=== PATIENT | male | born 1950 | race Caucasian/White ===

== ENCOUNTER 2021-12-11 16:24 | Inpatient (IN) ==
[2021-12-11] MEDS ORDERED: ADENOSINE 6 MG/2 ML VIAL ONE ×2 (17:11→17:28)
[2021-12-11] MEDS ORDERED: ADENOSINE 6 MG/2 ML VIAL IV STA ×2 (17:15→17:39)
[2021-12-11] MEDS ORDERED: SODIUM CHLORIDE 0.9% 2,000 ML IV STA (17:19)
[2021-12-11 17:29] LABS: Basophils # 0.1 10*3/uL (0.0-0.2); Basophils % 0.3 % (0.0-0.8); Eosinophils % 0.1 % (0.00-10.9); Hematocrit 44.1 VOL% (42.0-52.0); Hemoglobin 14.3 GM/DL (14.0-18.0); Immature Granulocytes % 2.6 %; Immature Granulocytes Absolute 0.65 #; Lymphocytes # 0.6 10*3/uL (1.4-4.0); Lymphocytes % 2.5 % (21.2-54.2); Mean Corpuscular HGB Conc 32.4 GM/DL (32-36); Mean Corpuscular Volume 89.6 FL (87-102); Mean Platelet Volume 11.4 FL (9.6-12.0); Monocytes % 3.2 % (1.7-12.7); Neutrophils % 91.3 % (38.7-73.9); Platelet Count 276 T/CUMM (130-400); Red Blood Count 4.92 MC/CUMM (3.8-5.5); Red Cell Distribution Width 14.3 % (9.3-17.3); White Blood Count 25.4 T/CUMM (4-12)
[2021-12-11 17:47] LABS: ABG Base Excess -11.1 MMOL/L (-2.5-2.5); ABG HCO3 15.8 MMOL/L (20-26); ABG Oxygen Saturation 96.4 % (95-100); ABG PCO2 26.6 MM HG (35-48); ABG PH 7.319 (7.35-7.45)
[2021-12-11 17:50] LABS: Alanine Aminotransferase 21 U/L (16-61); Albumin 1.9 G/DL (3.4-5.0); Alkaline Phosphatase 101 U/L (45-117); Aspartate Amino Transferase 15 U/L (0-37); Blood Urea Nitrogen 132 MG/DL (7-18); Calcium 8.5 MG/DL (8.5-10.1); Carbon Dioxide 15 MMOL/L (21-32); Estimated Glom Filtration Rate 16 ML/MIN; Glucose 487 MG/DL (74-106); Osmolality,Calculated 337.8 MOS/KG (273-304); Potassium 5.2 MMOL/L (3.5-5.1); Sodium 137 MMOL/L (136-145); Total Protein 6.8 G/DL (6.4-8.2)
[2021-12-11] MEDS ORDERED: SODIUM CHLORIDE 0.9% 1,000 ML IV STA (18:06)
[2021-12-11] MEDS ORDERED: CEFEPIME 1,000 MG in SODIUM CHLORIDE 0.9% 100 ML IV STA (18:11)
[2021-12-11 18:33] LABS: Band Neutrophils 2 % (0-10); Lymphocytes 2 % (20-55); Segmented Neutrophils 94 % (50-85); Total Cells Counted 100
[2021-12-11 18:34] LABS: Burr Cells 2+
[2021-12-11] MEDS ORDERED: DIGOXIN 0.5 MG/2 ML AMP IV STA (18:59)
[2021-12-11] MEDS ORDERED: INSULIN REGULAR 100 UNIT/ML IV STA (19:02)
[2021-12-11] MEDS ORDERED: DEXTROSE 10% 250 ML BAG IV PRN (19:03)
[2021-12-11] MEDS ORDERED: GLUCAGON 1 MG VIAL IM PRN (19:03)
[2021-12-11] MEDS ORDERED: ALBUTEROL 2.5 MG/3 ML NEB RESP TX PRN (19:07)
[2021-12-11] MEDS ORDERED: ONDANSETRON 4 MG/2 ML VIAL IV PRN (19:07)
[2021-12-11] MEDS ORDERED: DILTIAZEM INJ 100 MG in SODIUM CHLORIDE 0.9% 100 ML IV SCH (19:30)
[2021-12-11] MEDS: HYDROCORTISONE 100 MG VIAL IV SCH (19:33)
[2021-12-11] MEDS: LACTATED RINGERS 1,000 ML IV SCH (19:33)
[2021-12-11] MEDS ORDERED: DIGOXIN 0.5 MG/2 ML AMP IV ONE (20:00)
[2021-12-11] MEDS ORDERED: METOPROLOL TARTRATE 5 MG/5 ML VIAL IV STA (21:44)
[2021-12-12] MEDS: INSULIN LISPRO 100 UNIT/ML SUBCUT SCH ×7 (00:24→23:27)
[2021-12-12] MEDS ORDERED: METOPROLOL TARTRATE 5 MG/5 ML VIAL IV STA (03:10)
[2021-12-12] MEDS: LACTATED RINGERS 1,000 ML IV SCH ×4 (03:19→23:28)
[2021-12-12 06:02] LABS: Basophils % 0.1 % (0.0-0.8); Hematocrit 39.7 VOL% (42.0-52.0); Immature Granulocytes % 1.4 %; Immature Granulocytes Absolute 0.31 #; Lymphocytes # 0.8 10*3/uL (1.4-4.0); Lymphocytes % 3.6 % (21.2-54.2); Mean Corpuscular HGB Conc 32.7 GM/DL (32-36); Mean Corpuscular Volume 89.6 FL (87-102); Mean Platelet Volume 11.6 FL (9.6-12.0); Monocytes % 3.8 % (1.7-12.7); Neutrophils % 91.1 % (38.7-73.9); Platelet Count 259 T/CUMM (130-400); Red Blood Count 4.43 MC/CUMM (3.8-5.5); Red Cell Distribution Width 14.6 % (9.3-17.3); White Blood Count 21.5 T/CUMM (4-12)
[2021-12-12 06:07] LABS: INR 1.2; PT Patient Result 12.9 SECS (10.5-12.0)
[2021-12-12 06:23] LABS: Lymphocytes 1 % (20-55); Platelet Estimate Adequate; Segmented Neutrophils 96 % (50-85); Total Cells Counted 100
[2021-12-12 08:47] LABS: Albumin 1.8 G/DL (3.4-5.0); Bilirubin,Total 0.7 MG/DL (0.20-1.00); Calcium 8.5 MG/DL (8.5-10.1); Osmolality,Calculated 308.2 MOS/KG (273-304); Potassium 4.6 MMOL/L (3.5-5.1); Thyroid Stimulating Hormone 1.32 uIU/ml (0.358-3.74); Total Protein 6.4 G/DL (6.4-8.2)
[2021-12-12] MEDS: PANTOPRAZOLE 40 MG TABLET PO SCH (09:19)
[2021-12-12] MEDS: HYDROCORTISONE 100 MG VIAL IV SCH ×2 (09:28→22:30)
[2021-12-12 10:21] LABS: Calcium 8.5 MG/DL (8.5-10.1); Potassium 4.7 MMOL/L (3.5-5.1)
[2021-12-12 12:05] LABS: Amorphous Crystals,Urine Few /HPF (Few); Bilirubin,Urine Negative (Negative); Blood, Urine Moderate mg/dL (Negative); Glucose,Urine (UA) 150 mg/dL (Negative); Ketones,Urine Negative (Negative); Nitrite,Urine Negative (Negative); Protein,Urine >=500 MG/DL; RBC,Urine 22 /HPF (0-4); Urine Appearance CLOUDY (Clear); Urine Color Yellow (Yellow); Urine Specific Gravity 1.012 (1.001-1.035); Urine Urobilinogen < 2.0 EU/DL (<2.0)
[2021-12-12] MEDS ORDERED: METOPROLOL TARTRATE 25 MG TABLET PO ONE (12:29)
[2021-12-12] MEDS: INSULIN GLARGINE 100 UNIT/ML SUBCUT SCH (13:32)
[2021-12-12] MEDS: cefTRIAXone 1,000 MG in SODIUM CHLORIDE 0.9% 100 ML IV SCH (13:32)
[2021-12-12 13:55] LABS: Calcium 7.9 MG/DL (8.5-10.1); Osmolality,Calculated 319.4 MOS/KG (273-304); Potassium 4.8 MMOL/L (3.5-5.1)
[2021-12-12] MEDS: DILTIAZEM 60 MG TABLET PO SCH ×3 (15:00→22:25)
[2021-12-12] MEDS ORDERED: APIXABAN 5 MG TABLET PO SCH (21:00)
[2021-12-12] MEDS ORDERED: HYDROCORTISONE 100 MG VIAL ONE (22:12)
[2021-12-12] MEDS: METOPROLOL TARTRATE 25 MG TABLET PO SCH (22:25)
[2021-12-12] MEDS: ATORVASTATIN 40 MG TABLET PO SCH (22:25)
[2021-12-13] MEDS: INSULIN LISPRO 100 UNIT/ML SUBCUT SCH ×6 (03:03→20:48)
[2021-12-13 04:25] LABS: Basophils % 0.1 % (0.0-0.8); Eosinophils % 0.1 % (0.00-10.9); Hematocrit 36.8 VOL% (42.0-52.0); Immature Granulocytes % 2.2 %; Immature Granulocytes Absolute 0.29 #; Lymphocytes # 0.5 10*3/uL (1.4-4.0); Lymphocytes % 3.9 % (21.2-54.2); Mean Corpuscular HGB Conc 32.6 GM/DL (32-36); Mean Corpuscular Volume 89.8 FL (87-102); Mean Platelet Volume 11.2 FL (9.6-12.0); Monocytes % 3.5 % (1.7-12.7); Neutrophils % 90.2 % (38.7-73.9); Platelet Count 194 T/CUMM (130-400); Red Cell Distribution Width 14.7 % (9.3-17.3); White Blood Count 13.4 T/CUMM (4-12)
[2021-12-13 04:43] LABS: Albumin 1.4 G/DL (3.4-5.0); Band Neutrophils 1 % (0-10); Bilirubin,Total 0.6 MG/DL (0.20-1.00); Hypochromia 1+; Lymphocytes 5 % (20-55); Microcytosis 1+; Osmolality,Calculated 313.1 MOS/KG (273-304); Platelet Estimate Adequate; Potassium 4.7 MMOL/L (3.5-5.1); Segmented Neutrophils 93 % (50-85); Total Cells Counted 100; Total Protein 6.1 G/DL (6.4-8.2)
[2021-12-13] MEDS: LACTATED RINGERS 1,000 ML IV SCH ×2 (05:16→20:35)
[2021-12-13] MEDS: DILTIAZEM 60 MG TABLET PO SCH ×4 (09:09→20:32)
[2021-12-13] MEDS: METOPROLOL TARTRATE 25 MG TABLET PO SCH ×2 (09:09→20:33)
[2021-12-13] MEDS ORDERED: ETOMIDATE 40 MG/20 ML VIAL IV ONE (11:41)
[2021-12-13] MEDS ORDERED: SEVOFLURANE 1 UNIT/15 MINUTE INH ONE (11:41)
[2021-12-13] MEDS ORDERED: LIDOCAINE 2% 5 ML VIAL ONE (11:41)
[2021-12-13] MEDS ORDERED: PHENYLEPHRINE 1 MG/10 ML SYRINGE IV ONE (11:41)
[2021-12-13] MEDS ORDERED: MIDAZOLAM 2 MG/2 ML VIAL ONE (11:41)
[2021-12-13] MEDS ORDERED: ACETAMINOPHEN INJ 1,000 MG/100 ML VIAL IV ONE (11:41)
[2021-12-13] MEDS ORDERED: fentaNYL 250 MCG/5 ML VIAL ONE (11:41)
[2021-12-13] MEDS ORDERED: ROCURONIUM 50 MG/5 ML VIAL IV ONE (11:41)
[2021-12-13] MEDS ORDERED: propofoL 200 MG/20 ML VIAL IV ONE (11:41)
[2021-12-13] MEDS ORDERED: CALCIUM CHLORIDE 1,000 MG/10 ML VIAL IV ONE (12:48)
[2021-12-13] MEDS ORDERED: ALBUMIN 5% 25.0 GM/500 ML VIAL IV ONE (12:48)
[2021-12-13] MEDS ORDERED: BACITRACIN OINT 0.9 GM PACK TOP ONE (12:53)
[2021-12-13] MEDS: ceFAZolin 2,000 MG/50 ML DUPLEX IV ONE ×2 (12:54→15:45)
[2021-12-13] MEDS: ASPIRIN EC 81 MG TABLET PO SCH (12:55)
[2021-12-13] MEDS: PANTOPRAZOLE 40 MG TABLET PO SCH (12:55)
[2021-12-13] MEDS: INSULIN GLARGINE 100 UNIT/ML SUBCUT SCH (12:55)
[2021-12-13] MEDS: TAMSULOSIN 0.4 MG CAPSULE PO SCH (12:55)
[2021-12-13] MEDS ORDERED: MAGNESIUM HYDROXIDE SUSP 30 ML UDCUP PO PRN (14:00)
[2021-12-13] MEDS ORDERED: MORPHINE 2 MG/1 ML SYRINGE IV PRN (14:01)
[2021-12-13] MEDS ORDERED: cefTRIAXone 1,000 MG VIAL ONE (14:30)
[2021-12-13] MEDS ORDERED: DILTIAZEM 50 MG/10 ML VIAL IV ONE (14:31)
[2021-12-13] MEDS ORDERED: LACTATED RINGERS 1,000 ML IV ONE (14:37)
[2021-12-13] MEDS ORDERED: ONDANSETRON 4 MG/2 ML VIAL ONE (14:38)
[2021-12-13] MEDS ORDERED: GLYCOPYRROLATE 0.4 MG/2 ML VIAL ONE (14:57)
[2021-12-13] MEDS ORDERED: NEOSTIGMINE 10 MG/10 ML VIAL ONE (14:57)
[2021-12-13] MEDS: cefTRIAXone 1,000 MG in SODIUM CHLORIDE 0.9% 100 ML IV SCH (15:37)
[2021-12-13] MEDS: DOCUSATE SODIUM 100 MG CAPSULE PO SCH (20:32)
[2021-12-13] MEDS: APIXABAN 2.5 MG TABLET PO SCH (20:32)
[2021-12-13] MEDS: ATORVASTATIN 40 MG TABLET PO SCH (20:33)
[2021-12-13] MEDS: MORPHINE 2 MG/1 ML SYRINGE IV PRN (21:52)
[2021-12-14] MEDS: INSULIN LISPRO 100 UNIT/ML SUBCUT SCH ×6 (01:01→22:24)
[2021-12-14] MEDS: MORPHINE 2 MG/1 ML SYRINGE IV PRN ×4 (04:33→20:54)
[2021-12-14] MEDS: LACTATED RINGERS 1,000 ML IV SCH (06:22)
[2021-12-14 06:46] LABS: Basophils # 0.1 10*3/uL (0.0-0.2); Basophils % 0.4 % (0.0-0.8); Eosinophils # 0.3 10*3/uL (0.0-0.87); Eosinophils % 1.8 % (0.00-10.9); Hematocrit 38.5 VOL% (42.0-52.0); Hemoglobin 12.2 GM/DL (14.0-18.0); Immature Granulocytes % 3.9 %; Immature Granulocytes Absolute 0.53 #; Lymphocytes # 0.7 10*3/uL (1.4-4.0); Lymphocytes % 4.9 % (21.2-54.2); Mean Corpuscular HGB Conc 31.7 GM/DL (32-36); Mean Corpuscular Volume 93.7 FL (87-102); Mean Platelet Volume 12.1 FL (9.6-12.0); Monocytes % 4.8 % (1.7-12.7); Neutrophils % 84.2 % (38.7-73.9); Platelet Count 175 T/CUMM (130-400); Red Blood Count 4.11 MC/CUMM (3.8-5.5); Red Cell Distribution Width 14.9 % (9.3-17.3); White Blood Count 13.5 T/CUMM (4-12)
[2021-12-14 06:59] LABS: Calcium 8.3 MG/DL (8.5-10.1); Osmolality,Calculated 287.7 MOS/KG (273-304); Potassium 4.2 MMOL/L (3.5-5.1)
[2021-12-14 07:07] LABS: Lymphocytes 5 % (20-55); Platelet Estimate Adequate; Segmented Neutrophils 89 % (50-85); Total Cells Counted 100
[2021-12-14] MEDS: ASPIRIN EC 81 MG TABLET PO SCH (10:06)
[2021-12-14] MEDS: DOCUSATE SODIUM 100 MG CAPSULE PO SCH ×2 (10:06→20:49)
[2021-12-14] MEDS: APIXABAN 2.5 MG TABLET PO SCH ×2 (10:07→20:50)
[2021-12-14] MEDS: TAMSULOSIN 0.4 MG CAPSULE PO SCH (10:07)
[2021-12-14] MEDS: METOPROLOL TARTRATE 25 MG TABLET PO SCH ×2 (10:07→20:50)
[2021-12-14] MEDS: PANTOPRAZOLE 40 MG TABLET PO SCH (10:07)
[2021-12-14] MEDS: VERAPAMIL 80 MG TABLET PO SCH ×2 (10:16→20:51)
[2021-12-14] MEDS: INSULIN GLARGINE 100 UNIT/ML SUBCUT SCH (10:17)
[2021-12-14] MEDS: cefTRIAXone 1,000 MG in SODIUM CHLORIDE 0.9% 100 ML IV SCH (11:49)
[2021-12-14] MEDS: ATORVASTATIN 40 MG TABLET PO SCH (20:50)
[2021-12-15] MEDS: INSULIN LISPRO 100 UNIT/ML SUBCUT SCH ×6 (03:55→21:51)
[2021-12-15 05:44] LABS: Basophils # 0.1 10*3/uL (0.0-0.2); Basophils % 0.6 % (0.0-0.8); Eosinophils # 0.4 10*3/uL (0.0-0.87); Eosinophils % 4.6 % (0.00-10.9); Hematocrit 32.5 VOL% (42.0-52.0); Hemoglobin 10.3 GM/DL (14.0-18.0); Immature Granulocytes Absolute 0.75 #; Lymphocytes # 0.8 10*3/uL (1.4-4.0); Lymphocytes % 8.9 % (21.2-54.2); Mean Corpuscular HGB Conc 31.7 GM/DL (32-36); Mean Corpuscular Volume 92.9 FL (87-102); Mean Platelet Volume 11.3 FL (9.6-12.0); Monocytes % 7.7 % (1.7-12.7); Neutrophils % 70.2 % (38.7-73.9); Platelet Count 133 T/CUMM (130-400); Red Cell Distribution Width 14.6 % (9.3-17.3); White Blood Count 9.3 T/CUMM (4-12)
[2021-12-15 05:57] LABS: Calcium 7.8 MG/DL (8.5-10.1); Osmolality,Calculated 282.1 MOS/KG (273-304)
[2021-12-15 06:45] LABS: Anisocytosis 1+; Band Neutrophils 14 % (0-10); Eosinophils 3 % (0-10); Lymphocytes 8 % (20-55); Metamyelocytes 1 %; Platelet Estimate Adequate; Segmented Neutrophils 65 % (50-85); Total Cells Counted 100
[2021-12-15 06:46] LABS: Macrocytosis Slight
[2021-12-15] MEDS: MORPHINE 2 MG/1 ML SYRINGE IV PRN ×2 (09:17→17:43)
[2021-12-15] MEDS: ASPIRIN EC 81 MG TABLET PO SCH (09:18)
[2021-12-15] MEDS: TAMSULOSIN 0.4 MG CAPSULE PO SCH (09:18)
[2021-12-15] MEDS: INSULIN GLARGINE 100 UNIT/ML SUBCUT SCH (09:18)
[2021-12-15] MEDS: METOPROLOL TARTRATE 25 MG TABLET PO SCH ×2 (09:19→21:50)
[2021-12-15] MEDS: DOCUSATE SODIUM 100 MG CAPSULE PO SCH ×2 (09:19→21:50)
[2021-12-15] MEDS: PANTOPRAZOLE 40 MG TABLET PO SCH (09:19)
[2021-12-15] MEDS: APIXABAN 2.5 MG TABLET PO SCH ×2 (09:19→21:51)
[2021-12-15] MEDS: cefTRIAXone 1,000 MG in SODIUM CHLORIDE 0.9% 100 ML IV SCH (09:32)
[2021-12-15] MEDS: VERAPAMIL 80 MG TABLET PO SCH ×2 (09:32→21:51)
[2021-12-15] MEDS: ATORVASTATIN 40 MG TABLET PO SCH (21:50)
[2021-12-16] MEDS: INSULIN LISPRO 100 UNIT/ML SUBCUT SCH ×7 (01:17→23:39)
[2021-12-16 06:12] LABS: Basophils # 0.1 10*3/uL (0.0-0.2); Basophils % 0.6 % (0.0-0.8); Eosinophils # 0.5 10*3/uL (0.0-0.87); Eosinophils % 5.3 % (0.00-10.9); Hemoglobin 9.9 GM/DL (14.0-18.0); Immature Granulocytes % 7.3 %; Immature Granulocytes Absolute 0.68 #; Lymphocytes # 0.9 10*3/uL (1.4-4.0); Lymphocytes % 9.2 % (21.2-54.2); Mean Corpuscular HGB Conc 30.9 GM/DL (32-36); Mean Corpuscular Volume 94.1 FL (87-102); Mean Platelet Volume 11.9 FL (9.6-12.0); Monocytes % 7.8 % (1.7-12.7); Neutrophils % 69.8 % (38.7-73.9); Platelet Count 141 T/CUMM (130-400); Red Cell Distribution Width 14.6 % (9.3-17.3); White Blood Count 9.3 T/CUMM (4-12)
[2021-12-16 06:40] LABS: Calcium 7.3 MG/DL (8.5-10.1); Osmolality,Calculated 282.8 MOS/KG (273-304); Potassium 3.7 MMOL/L (3.5-5.1)
[2021-12-16 06:47] LABS: Band Neutrophils 2 % (0-10); Eosinophils 5 % (0-10); Hypochromia 1+; Lymphocytes 10 % (20-55); Microcytosis 1+; Myelocytes 1 %; Segmented Neutrophils 71 % (50-85); Total Cells Counted 100
[2021-12-16 06:48] LABS: Polychromasia Slight
[2021-12-16] MEDS: INSULIN GLARGINE 100 UNIT/ML SUBCUT SCH (09:33)
[2021-12-16] MEDS: DOCUSATE SODIUM 100 MG CAPSULE PO SCH ×2 (09:34→21:00)
[2021-12-16] MEDS: METOPROLOL TARTRATE 25 MG TABLET PO SCH ×2 (09:34→21:00)
[2021-12-16] MEDS: TAMSULOSIN 0.4 MG CAPSULE PO SCH (09:34)
[2021-12-16] MEDS: PANTOPRAZOLE 40 MG TABLET PO SCH (09:35)
[2021-12-16] MEDS: VERAPAMIL 80 MG TABLET PO SCH ×2 (09:35→21:01)
[2021-12-16] MEDS: APIXABAN 2.5 MG TABLET PO SCH (09:35)
[2021-12-16] MEDS: ASPIRIN EC 81 MG TABLET PO SCH (09:35)
[2021-12-16] MEDS: cefTRIAXone 1,000 MG in SODIUM CHLORIDE 0.9% 100 ML IV SCH (11:34)
[2021-12-16] MEDS: APIXABAN 5 MG TABLET PO SCH (21:00)
[2021-12-16] MEDS: ATORVASTATIN 40 MG TABLET PO SCH (21:00)
[2021-12-16] MEDS: MORPHINE 2 MG/1 ML SYRINGE IV PRN (21:02)
[2021-12-17] MEDS: INSULIN LISPRO 100 UNIT/ML SUBCUT SCH ×6 (04:22→23:48)
[2021-12-17] MEDS: MORPHINE 2 MG/1 ML SYRINGE IV PRN (09:32)
[2021-12-17] MEDS: PANTOPRAZOLE 40 MG TABLET PO SCH (09:35)
[2021-12-17] MEDS: ASPIRIN EC 81 MG TABLET PO SCH (09:35)
[2021-12-17] MEDS: TAMSULOSIN 0.4 MG CAPSULE PO SCH (09:35)
[2021-12-17] MEDS: APIXABAN 5 MG TABLET PO SCH ×2 (09:35→20:38)
[2021-12-17] MEDS: METOPROLOL TARTRATE 25 MG TABLET PO SCH ×2 (09:36→20:39)
[2021-12-17] MEDS: DOCUSATE SODIUM 100 MG CAPSULE PO SCH ×2 (09:36→20:39)
[2021-12-17] MEDS: INSULIN GLARGINE 100 UNIT/ML SUBCUT SCH (09:36)
[2021-12-17] MEDS: VERAPAMIL 80 MG TABLET PO SCH ×2 (09:37→20:39)
[2021-12-17] MEDS: cefTRIAXone 1,000 MG in SODIUM CHLORIDE 0.9% 100 ML IV SCH (09:43)
[2021-12-17] MEDS: ATORVASTATIN 40 MG TABLET PO SCH (20:38)
[2021-12-18] MEDS: INSULIN LISPRO 100 UNIT/ML SUBCUT SCH ×5 (04:32→20:40)
[2021-12-18] MEDS: METOPROLOL TARTRATE 25 MG TABLET PO SCH ×2 (08:56→20:39)
[2021-12-18] MEDS: AMPICILLIN 500 MG CAPSULE PO SCH ×4 (08:56→20:39)
[2021-12-18] MEDS: APIXABAN 5 MG TABLET PO SCH ×2 (08:56→20:39)
[2021-12-18] MEDS: TAMSULOSIN 0.4 MG CAPSULE PO SCH (08:57)
[2021-12-18] MEDS: VERAPAMIL 80 MG TABLET PO SCH ×2 (08:57→20:40)
[2021-12-18] MEDS: DOCUSATE SODIUM 100 MG CAPSULE PO SCH ×2 (08:57→20:40)
[2021-12-18] MEDS: PANTOPRAZOLE 40 MG TABLET PO SCH (08:57)
[2021-12-18] MEDS: ASPIRIN EC 81 MG TABLET PO SCH (08:58)
[2021-12-18] MEDS: INSULIN GLARGINE 100 UNIT/ML SUBCUT SCH (08:58)
[2021-12-18] MEDS: MORPHINE 2 MG/1 ML SYRINGE IV PRN (10:19)
[2021-12-18] MEDS: ATORVASTATIN 40 MG TABLET PO SCH (20:39)
[2021-12-18] MEDS ORDERED: INSULIN GLARGINE 100 UNIT/ML SUBCUT SCH (21:00)
[2021-12-19] MEDS: INSULIN LISPRO 100 UNIT/ML SUBCUT SCH ×4 (00:15→12:14)
[2021-12-19 05:53] LABS: Basophils # 0.1 10*3/uL (0.0-0.2); Basophils % 0.6 % (0.0-0.8); Eosinophils # 0.4 10*3/uL (0.0-0.87); Eosinophils % 4.7 % (0.00-10.9); Hematocrit 30.6 VOL% (42.0-52.0); Hemoglobin 9.7 GM/DL (14.0-18.0); Immature Granulocytes % 4.6 %; Immature Granulocytes Absolute 0.41 #; Lymphocytes # 0.9 10*3/uL (1.4-4.0); Lymphocytes % 9.7 % (21.2-54.2); Mean Corpuscular HGB Conc 31.7 GM/DL (32-36); Mean Corpuscular Volume 92.4 FL (87-102); Mean Platelet Volume 11.2 FL (9.6-12.0); Neutrophils % 74.4 % (38.7-73.9); Platelet Count 208 T/CUMM (130-400); Red Blood Count 3.31 MC/CUMM (3.8-5.5); Red Cell Distribution Width 14.5 % (9.3-17.3); White Blood Count 8.9 T/CUMM (4-12)
[2021-12-19 06:19] LABS: Calcium 7.4 MG/DL (8.5-10.1); Potassium 3.4 MMOL/L (3.5-5.1)
[2021-12-19] MEDS ORDERED: POTASSIUM CHLORIDE 20 MEQ TABLET PO ONE (07:38)
[2021-12-19] MEDS: TAMSULOSIN 0.4 MG CAPSULE PO SCH (08:24)
[2021-12-19] MEDS: PANTOPRAZOLE 40 MG TABLET PO SCH (08:25)
[2021-12-19] MEDS: AMPICILLIN 500 MG CAPSULE PO SCH ×2 (08:25→12:13)
[2021-12-19] MEDS: ASPIRIN EC 81 MG TABLET PO SCH (08:25)
[2021-12-19] MEDS: APIXABAN 5 MG TABLET PO SCH (08:25)
[2021-12-19] MEDS: DOCUSATE SODIUM 100 MG CAPSULE PO SCH (08:25)
[2021-12-19] MEDS: METOPROLOL TARTRATE 25 MG TABLET PO SCH (08:36)
[2021-12-19] MEDS: VERAPAMIL 80 MG TABLET PO SCH (08:59)
[2021-12-19 12:24] VITALS: BP 97/70
== END 2021-12-19 14:49 | DRG 480 ==
LOC: EDUNIT# → EDBD → N.ED 16:24 → SUATTDRO 18:23 → N.EDINP 18:23 → N.TELEN 12-13 04:38
PROVIDERS: ADMIT Internal Medicine; ATTEND Internal Medicine

== ENCOUNTER 2021-12-28 08:55 | Inpatient (IN) ==
[2021-12-28] MEDS ORDERED: DIAZEPAM 5 MG TABLET PO ONE (09:22)
[2021-12-28] MEDS: LACTATED RINGERS 1,000 ML IV SCH ×2 (09:30→13:10)
[2021-12-28] MEDS ORDERED: ROCURONIUM 50 MG/5 ML VIAL IV ONE (10:34)
[2021-12-28] MEDS ORDERED: LIDOCAINE 2% 5 ML VIAL ONE (10:34)
[2021-12-28] MEDS ORDERED: SUCCINYLCHOLINE 200 MG/10 ML VIAL ONE (10:34)
[2021-12-28] MEDS ORDERED: propofoL 200 MG/20 ML VIAL IV ONE (10:34)
[2021-12-28] MEDS ORDERED: fentaNYL 100 MCG/2 ML VIAL ONE (10:36)
[2021-12-28] MEDS ORDERED: ONDANSETRON 4 MG/2 ML VIAL ONE (10:40)
[2021-12-28] MEDS ORDERED: SEVOFLURANE 1 UNIT/15 MINUTE INH ONE ×4 (11:27→12:17)
[2021-12-28] MEDS ORDERED: PHENYLEPHRINE 1 MG/10 ML SYRINGE IV ONE ×4 (11:27→12:17)
[2021-12-28] MEDS ORDERED: ACETAMINOPHEN INJ 1,000 MG/100 ML VIAL IV ONE (12:28)
[2021-12-28] MEDS ORDERED: HYDROmorphone 2 MG/1 ML VIAL IV PRN ×2 (13:20→13:39)
[2021-12-28] MEDS ORDERED: ONDANSETRON 4 MG/2 ML VIAL IV PRN ×2 (13:20→13:39)
[2021-12-28] MEDS ORDERED: ALBUTEROL/IPRATROPIUM 3 ML NEB RESP TX PRN (13:39)
[2021-12-28] MEDS ORDERED: KETOROLAC 15 MG/1 ML VIAL IV PRN (13:39)
[2021-12-28] MEDS ORDERED: GLUCAGON 1 MG VIAL IM PRN (13:39)
[2021-12-28] MEDS ORDERED: ACETAMINOPHEN 325 MG TABLET PO PRN (13:39)
[2021-12-28] MEDS ORDERED: BISACODYL 5 MG TABLET PO PRN (13:39)
[2021-12-28] MEDS ORDERED: DEXTROSE 10% 250 ML BAG IV PRN (13:39)
[2021-12-28] MEDS ORDERED: ZALEPLON 5 MG CAPSULE PO PRN (13:45)
[2021-12-28] MEDS ORDERED: PNEUMOCOCCAL VACCINE (13 VALENT) 0.5 ML SYRINGE IM ONE (14:00)
[2021-12-28] MEDS: POLYETHYLENE GLYCOL POWDER 17 GM PACK PO SCH (16:40)
[2021-12-28] MEDS: CIPROFLOXACIN INJ 400 MG/200 ML PREMIX IV SCH (16:40)
[2021-12-28] MEDS: INSULIN LISPRO 100 UNIT/ML SUBCUT SCH ×2 (19:10→20:57)
[2021-12-28] MEDS ORDERED: VERAPAMIL 80 MG TABLET PO SCH (21:00)
[2021-12-28] MEDS ORDERED: glipiZIDE 5 MG TABLET PO SCH (21:00)
[2021-12-28] MEDS: BISACODYL 5 MG TABLET PO SCH (21:12)
[2021-12-28] MEDS: METOPROLOL TARTRATE 25 MG TABLET PO SCH (21:12)
[2021-12-28] MEDS: ATORVASTATIN 40 MG TABLET PO SCH (21:12)
[2021-12-29] MEDS: HYDROmorphone 2 MG/1 ML VIAL IV PRN ×4 (01:36→14:10)
[2021-12-29] MEDS: CIPROFLOXACIN INJ 400 MG/200 ML PREMIX IV SCH ×2 (05:35→17:00)
[2021-12-29 07:13] LABS: Basophils % 0.5 % (0.0-0.8); Eosinophils # 0.3 10*3/uL (0.0-0.87); Eosinophils % 3.8 % (0.00-10.9); Hematocrit 25.1 VOL% (42.0-52.0); Hemoglobin 7.7 GM/DL (14.0-18.0); Immature Granulocytes % 7.3 %; Immature Granulocytes Absolute 0.57 #; Lymphocytes # 0.9 10*3/uL (1.4-4.0); Lymphocytes % 11.1 % (21.2-54.2); Mean Corpuscular HGB Conc 30.7 GM/DL (32-36); Mean Corpuscular Volume 92.3 FL (87-102); Mean Platelet Volume 9.5 FL (9.6-12.0); Monocytes % 6.3 % (1.7-12.7); NRBC # 0.02 10*3/uL; Platelet Count 359 T/CUMM (130-400); Red Blood Count 2.72 MC/CUMM (3.8-5.5); Red Cell Distribution Width 15.2 % (9.3-17.3); White Blood Count 7.8 T/CUMM (4-12)
[2021-12-29 07:29] LABS: Calcium 7.4 MG/DL (8.5-10.1); Osmolality,Calculated 266.1 MOS/KG (273-304); Potassium 3.7 MMOL/L (3.5-5.1)
[2021-12-29 07:44] LABS: Band Neutrophils 1 % (0-10); Eosinophils 2 % (0-10); Hypochromia 1+; Lymphocytes 12 % (20-55); Microcytosis 1+; Myelocytes 1 %; Segmented Neutrophils 76 % (50-85); Total Cells Counted 100
[2021-12-29 07:45] LABS: Platelet Estimate Normal
[2021-12-29] MEDS ORDERED: ENOXAPARIN 40 MG/0.4 ML SYRINGE SUBCUT SCH (08:00)
[2021-12-29] MEDS: INSULIN LISPRO 100 UNIT/ML SUBCUT SCH (08:30)
[2021-12-29 08:44] LABS: % Iron Saturation 12.8 % (18-50); Ferritin 1265.9 ng/mL (26-388)
[2021-12-29 08:47] LABS: Folate 3.1 NG/ML (5.38-24.0)
[2021-12-29] MEDS: TAMSULOSIN 0.4 MG CAPSULE PO SCH (09:36)
[2021-12-29] MEDS: POLYETHYLENE GLYCOL POWDER 17 GM PACK PO SCH (09:36)
[2021-12-29] MEDS: PANTOPRAZOLE 40 MG TABLET PO SCH (09:36)
[2021-12-29] MEDS: ASPIRIN EC 81 MG TABLET PO SCH (09:36)
[2021-12-29] MEDS: METOPROLOL TARTRATE 25 MG TABLET PO SCH ×2 (09:36→20:55)
[2021-12-29] MEDS: SODIUM HYPOCHLORITE 0.25% IRRIG 473 ML BOTTLE TOP SCH (10:23)
[2021-12-29] MEDS: CYANOCOBALAMIN 1000 MCG/1 ML VIAL SUBCUT SCH (14:10)
[2021-12-29] MEDS: FOLIC ACID 1 MG TABLET PO SCH (14:10)
[2021-12-29] MEDS: FERRIC GLUCONATE COMPLEX 125 MG in SODIUM CHLORIDE 0.9% 100 ML IV SCH (14:10)
[2021-12-29] MEDS: BISACODYL 5 MG TABLET PO SCH (20:55)
[2021-12-29] MEDS: ATORVASTATIN 40 MG TABLET PO SCH (20:55)
[2021-12-30 05:59] LABS: Basophils # 0.1 10*3/uL (0.0-0.2); Basophils % 0.7 % (0.0-0.8); Eosinophils # 0.5 10*3/uL (0.0-0.87); Eosinophils % 5.2 % (0.00-10.9); Hemoglobin 7.7 GM/DL (14.0-18.0); Immature Granulocytes % 8.5 %; Immature Granulocytes Absolute 0.75 #; Lymphocytes # 1.1 10*3/uL (1.4-4.0); Lymphocytes % 12.3 % (21.2-54.2); Mean Corpuscular HGB Conc 30.8 GM/DL (32-36); Mean Corpuscular Volume 92.3 FL (87-102); Mean Platelet Volume 9.4 FL (9.6-12.0); Monocytes % 6.2 % (1.7-12.7); Neutrophils % 67.1 % (38.7-73.9); Platelet Count 381 T/CUMM (130-400); Red Blood Count 2.71 MC/CUMM (3.8-5.5); Red Cell Distribution Width 15.2 % (9.3-17.3); White Blood Count 8.9 T/CUMM (4-12)
[2021-12-30 06:06] LABS: Calcium 7.3 MG/DL (8.5-10.1); Osmolality,Calculated 270.1 MOS/KG (273-304)
[2021-12-30 06:28] LABS: Eosinophils 2 % (0-10); Hypochromia 1+; Lymphocytes 12 % (20-55); Microcytosis 1+; Platelet Estimate Adequate; Segmented Neutrophils 79 % (50-85); Total Cells Counted 100
[2021-12-30] MEDS: CIPROFLOXACIN INJ 400 MG/200 ML PREMIX IV SCH (06:30)
[2021-12-30] MEDS: METOPROLOL TARTRATE 25 MG TABLET PO SCH (08:13)
[2021-12-30] MEDS: PANTOPRAZOLE 40 MG TABLET PO SCH (08:13)
[2021-12-30] MEDS: FOLIC ACID 1 MG TABLET PO SCH (08:13)
[2021-12-30] MEDS: SODIUM HYPOCHLORITE 0.25% IRRIG 473 ML BOTTLE TOP SCH (08:13)
[2021-12-30] MEDS: POLYETHYLENE GLYCOL POWDER 17 GM PACK PO SCH (08:13)
[2021-12-30] MEDS: ASPIRIN EC 81 MG TABLET PO SCH (08:13)
[2021-12-30] MEDS: TAMSULOSIN 0.4 MG CAPSULE PO SCH (08:13)
[2021-12-30] MEDS: FERRIC GLUCONATE COMPLEX 125 MG in SODIUM CHLORIDE 0.9% 100 ML IV SCH (08:43)
[2021-12-30] MEDS: CYANOCOBALAMIN 1000 MCG/1 ML VIAL SUBCUT SCH (08:58)
[2021-12-30] MEDS: HYDROmorphone 2 MG/1 ML VIAL IV PRN (08:59)
[2021-12-30] MEDS ORDERED: LACTATED RINGERS 1,000 ML IV SCH (11:00)
[2021-12-30] MEDS ORDERED: AMPICILLIN INJ 2,000 MG in SODIUM CHLORIDE 0.9% 100 ML IV SCH (11:00)
[2021-12-30] MEDS ORDERED: ONDANSETRON 4 MG/2 ML VIAL ONE (11:15)
[2021-12-30] MEDS ORDERED: propofoL 200 MG/20 ML VIAL IV ONE (11:15)
[2021-12-30] MEDS ORDERED: MIDAZOLAM 2 MG/2 ML VIAL ONE (11:15)
[2021-12-30] MEDS ORDERED: SUCCINYLCHOLINE 200 MG/10 ML VIAL ONE (11:15)
[2021-12-30] MEDS ORDERED: LIDOCAINE 2% 5 ML VIAL ONE (11:15)
[2021-12-30] MEDS ORDERED: SEVOFLURANE 1 UNIT/15 MINUTE INH ONE (11:15)
[2021-12-30] MEDS ORDERED: ROCURONIUM 50 MG/5 ML VIAL IV ONE (11:15)
[2021-12-30] MEDS ORDERED: fentaNYL 100 MCG/2 ML VIAL ONE (11:16)
[2021-12-30] MEDS ORDERED: PHENYLEPHRINE 1 MG/10 ML SYRINGE IV ONE (11:48)
[2021-12-30] MEDS ORDERED: METOPROLOL TARTRATE 5 MG/5 ML VIAL IV ONE (12:07)
[2021-12-30] MEDS ORDERED: ONDANSETRON 4 MG/2 ML VIAL IV PRN (12:29)
[2021-12-30] MEDS ORDERED: HYDROmorphone 2 MG/1 ML VIAL IV PRN (12:29)
[2021-12-30 13:05] VITALS: BP 118/68
== END 2021-12-30 15:03 | DRG 264 ==
LOC: N.OR 08:55 → N.SDSINP 08:57 → N.3E 13:37
PROVIDERS: ADMIT Surgery; ATTEND Surgery

== ENCOUNTER 2022-05-15 20:46 | Inpatient (IN) ==
[2022-05-15] MEDS ORDERED: PIPERACILLIN/TAZOBACTAM 3,375 MG in SODIUM CHLORIDE 0.9% 100 ML IV STA (21:47)
[2022-05-15] MEDS ORDERED: SODIUM CHLORIDE 0.9% 500 ML IV STA (21:47)
[2022-05-15 22:54] LABS: Arterial Base Excess iSTAT -4 MMOL/L (-2.5-2.5); Arterial Bicarbonate iSTAT 16.8 MMOL/L (20-26); Arterial O2 Saturation iSTAT 88 % (95-100); Arterial PCO2 iSTAT 20 MM HG (35-48); Arterial PO2 iSTAT 47 MM HG (80-95); Arterial Total CO2 iSTAT 17 MMO/L (23-27); Arterial pH iSTAT 7.526 (7.35-7.45)
[2022-05-15] MEDS ORDERED: ACETAMINOPHEN 650 MG SUPP RECTAL STA (23:05)
[2022-05-15 23:19] LABS: Basophils % 0.1 % (0.0-0.8); Hematocrit 32.8 VOL% (42.0-52.0); Hemoglobin 10.6 GM/DL (14.0-18.0); Immature Granulocytes % 1.7 %; Immature Granulocytes Absolute 0.36 #; Lymphocytes # 0.7 10*3/uL (1.4-4.0); Lymphocytes % 3.2 % (21.2-54.2); Mean Corpuscular HGB Conc 32.3 GM/DL (32-36); Mean Corpuscular Volume 84.5 FL (87-102); Mean Platelet Volume 10.9 FL (9.6-12.0); Monocytes # 0.7 10*3/uL (0.11-0.8); Monocytes % 3.1 % (1.7-12.7); Neutrophils % 91.9 % (38.7-73.9); Platelet Count 201 T/CUMM (130-400); Red Blood Count 3.88 MC/CUMM (3.8-5.5); Red Cell Distribution Width 15.4 % (9.3-17.3); White Blood Count 21.2 T/CUMM (4-12)
[2022-05-15 23:28] LABS: INR 1.2; PT Patient Result 13.2 SECS (10.5-12.0)
[2022-05-15 23:40] LABS: Alanine Aminotransferase 44 U/L (16-61); Albumin 1.2 G/DL (3.4-5.0); Alkaline Phosphatase 93 U/L (45-117); Aspartate Amino Transferase 134 U/L (0-37); Blood Urea Nitrogen 41 MG/DL (7-18); CKMB % 3.96 %; Calcium 7.2 MG/DL (8.5-10.1); Carbon Dioxide 17 MMOL/L (21-32); Chloride 110 MMOL/L (98-107); Glucose 130 MG/DL (74-106); Osmolality,Calculated 294.1 MOS/KG (273-304); Potassium 3.7 MMOL/L (3.5-5.1); Sodium 142 MMOL/L (136-145); Total Protein 5.9 G/DL (6.4-8.2)
[2022-05-15 23:43] LABS: Lactic Acid 2.8 MMOL/L (0.4-2.0)
[2022-05-16 00:03] LABS: RBC,Urine 66 /HPF (0-4)
[2022-05-16 00:04] LABS: Bilirubin,Urine Negative (Negative); Blood, Urine Large mg/dL (Negative); Glucose,Urine (UA) Negative (Negative); Ketones,Urine 15 mg/dL (Negative); Nitrite,Urine Negative (Negative); Protein,Urine 100 mg/dL (Negative); Urine Appearance SL CLOUDY (Clear); Urine Color Yellow (Yellow); Urine Urobilinogen 0.2 eU/dL (<2.0)
[2022-05-16] MEDS ORDERED: SODIUM CHLORIDE 0.9% 2,350 ML IV ONE (00:21)
[2022-05-16] MEDS ORDERED: SODIUM CHLORIDE 0.9% 2,850 ML IV ONE (00:21)
[2022-05-16 00:27] LABS: Platelet Estimate Adequate
[2022-05-16] MEDS ORDERED: GLUCAGON 1 MG VIAL IM PRN (00:42)
[2022-05-16] MEDS ORDERED: ACETAMINOPHEN 325 MG TABLET PO PRN (00:48)
[2022-05-16] MEDS ORDERED: ONDANSETRON 4 MG/2 ML VIAL IV PRN (00:48)
[2022-05-16] MEDS ORDERED: MAGNESIUM SULF RIDER 4 GM/100 ML PREMIX IV PRN (00:58)
[2022-05-16] MEDS ORDERED: POTASSIUM CHLORIDE 20 MEQ TABLET PO PRN (00:58)
[2022-05-16] MEDS ORDERED: POTASSIUM CHLORIDE RIDER 10 MEQ/100 ML PREMIX IV PRN (00:58)
[2022-05-16] MEDS ORDERED: DEXTROSE 10% 250 ML BAG IV PRN (00:59)
[2022-05-16] MEDS ORDERED: ENOXAPARIN 100 MG/ML SYRINGE SUBCUT SCH (02:00)
[2022-05-16] MEDS: VANCOMYCIN INJ 1,500 MG in SODIUM CHLORIDE 0.9% 500 ML IV SCH ×2 (03:00→15:30)
[2022-05-16] MEDS ORDERED: DIGOXIN 0.5 MG/2 ML AMP IV ONE (03:04)
[2022-05-16 05:15] LABS: Basophils % 0.2 % (0.0-0.8); Hematocrit 28.5 VOL% (42.0-52.0); Hemoglobin 8.7 GM/DL (14.0-18.0); Immature Granulocytes % 1.4 %; Immature Granulocytes Absolute 0.26 #; Lymphocytes # 0.7 10*3/uL (1.4-4.0); Lymphocytes % 3.8 % (21.2-54.2); Mean Corpuscular HGB Conc 30.5 GM/DL (32-36); Mean Corpuscular Volume 86.9 FL (87-102); Mean Platelet Volume 11.2 FL (9.6-12.0); Monocytes # 0.7 10*3/uL (0.11-0.8); Neutrophils % 90.6 % (38.7-73.9); Platelet Count 168 T/CUMM (130-400); Red Blood Count 3.28 MC/CUMM (3.8-5.5); Red Cell Distribution Width 15.4 % (9.3-17.3); White Blood Count 18.5 T/CUMM (4-12)
[2022-05-16 05:34] LABS: Lymphocytes 2 % (20-55); Total Cells Counted 100
[2022-05-16 05:35] LABS: Acanthocytes Few; Burr Cells 1+; Calcium 7.1 MG/DL (8.5-10.1); Microcytosis 1+; Osmolality,Calculated 294.1 MOS/KG (273-304)
[2022-05-16 05:36] LABS: Ovalocytes Slight
[2022-05-16 05:40] LABS: CKMB % 4.08 %
[2022-05-16 05:41] LABS: High Sensitive Troponin I* 8321.4 ng/L (0-78)
[2022-05-16] MEDS: MAGNESIUM SULF RIDER 2 GM/50 ML PREMIX IV PRN ×2 (06:45→08:30)
[2022-05-16] MEDS ORDERED: MAGNESIUM SULF RIDER 4 GM/100 ML PREMIX IV ONE ×2 (07:23→07:49)
[2022-05-16] MEDS ORDERED: POTASSIUM CHLORIDE 20 MEQ TABLET PO ONE (07:24)
[2022-05-16] MEDS ORDERED: SODIUM CHLORIDE 0.9% 1,000 ML IV SCH (07:30)
[2022-05-16] MEDS: INSULIN REGULAR 100 UNIT/ML SUBCUT SCH ×3 (08:02→17:34)
[2022-05-16] MEDS: PIPERACILLIN/TAZOBACTAM 3,375 MG in SODIUM CHLORIDE 0.9% 100 ML IV SCH ×2 (08:29→17:34)
[2022-05-16] MEDS ORDERED: PANTOPRAZOLE 40 MG TABLET PO SCH (09:00)
[2022-05-16] MEDS ORDERED: DOCUSATE SODIUM 100 MG CAPSULE PO SCH (09:00)
[2022-05-16] MEDS ORDERED: FUROSEMIDE 40 MG/4 ML VIAL IV ONE (11:58)
[2022-05-16] MEDS ORDERED: ALBUTEROL/IPRATROPIUM 3 ML NEB RESP TX SCH (13:00)
[2022-05-16 15:23] LABS: Calcium 7.4 MG/DL (8.5-10.1); Osmolality,Calculated 304.6 MOS/KG (273-304); Potassium 4.5 MMOL/L (3.5-5.1)
[2022-05-16 16:23] VITALS: BP 43/26
== END 2022-05-16 16:36 | disposition expired | DRG 871 ==
LOC: N.ED 20:46 → SUATTDRO 05-16 00:42 → N.TELEN 05-16 00:42
PROVIDERS: ADMIT Family Medicine; ATTEND Internal Medicine